=== PATIENT | male | born 1980 | race Caucasian/White ===

== ENCOUNTER 2017-03-17 19:33 | Emergency (ER) | payer OTHER ==
--- NOTE | 2017-03-17 20:56 | PDOC ---
History of Present Illness - General History Source: Patient Exam Limitations: No Limitations - History of Present Illness Initial Comments: 03/17/17 23:22 Patient is a 36 year old male with pmhx of anxiety, depression who presents to the ED with hallucinations. Patient was given shrooms by a friend at 5 PM today and is now experiencing constant hallucinations. He states that he fell down at 6:30pm and he called the ambulance because he couldnt get up. He denies hitting his head or LOC. Denies pain or trauma as he controlled his fall to the ground. He states that he feels as if everything is moving and he sees flashing lights.He denies any suicidal ideation. He denies any daily medications. He denies any stress or reason for taking the shrooms he states that he was just curious. Denies other symptoms of CP, SOB, fevers, headache, focal weakness/numbness, abd pain, rashes PMH: Anxiety, depression PSh: septoplasty SH: 20 pack year smoking, no alcohol, no drug Allergies to aspirin, ibuprofen, shelfish, pencillins G, shelfish, soy. <Alicia Bush - Last Filed: 03/18/17 00:30> <Lamont Garcia - Last Filed: 03/18/17 01:00> - General Chief Complaint: Alcohol intoxication Stated Complaint: INTOX Time Seen by Provider: 03/17/17 20:55 Past History <Alicia Bush - Last Filed: 03/18/17 00:30> - Past Medical History CVA: (VERTEBRAL ARTERY DISECTION) Psychiatric Problems: Yes (PANIC ATTACKS, DEPRESSION) - Immunization History Td Vaccination: No - Suicide/Smoking/Psychosocial Hx Smoking Status: Yes Smoking History: Current every day smoker Number of Cigarettes Smoked Daily: 20 'Breaking Loose' booklet given: 05/07/16 Hx Alcohol Use: No Drug/Substance Use Hx: No Substance Use Type: None <Lamotn Garcia - Last Filed: 03/18/17 01:00> - Past Medical History Allergies/Adverse Reactions: Allergies Allergy/AdvReac Type Severity Reaction Status Date / Time aspirin Allergy Difficulty Verified 05/07/16 10:31 Breathing ibuprofen Allergy Verified 05/07/16 10:31 penicillin G Allergy Difficulty Verified 05/07/16 10:31 Breathing Shellfish Allergy Difficulty Verified 05/07/16 10:31 Breathing soy [Soy] Allergy Difficulty Verified 05/07/16 10:31 Breathing Home Medications: Ambulatory Orders Alprazolam [Xanax] 1 mg PO ASDIR 10/25/11 Bupropion HCl [Wellbutrin Sr] 150 mg PO DAILY 10/25/11 Buprenorphine HCl [Subutex -] 4 mg SL DAILY 05/07/16 Clindamycin [Cleocin -] 300 mg PO Q6HPO #28 capsule 05/07/16 Duloxetine HCl [Cymbalta] 60 mg PO DAILY 05/07/16 Review of Systems - Review of Systems Able to Perform ROS?: Yes Comments:: 03/17/17 23:22 GENERAL/CONSTITUTIONAL: No fever or chills. No weakness. HEAD, EYES, EARS, NOSE AND THROAT: No change in vision. No ear pain or discharge. No sore throat. GASTROINTESTINAL: No nausea, vomiting, diarrhea or constipation. GENITOURINARY: No dysuria, frequency, or change in urination. CARDIOVASCULAR: No chest pain or shortness of breath. RESPIRATORY: No cough, wheezing, or hemoptysis. MUSCULOSKELETAL: No joint or muscle swelling or pain. No neck or back pain. SKIN: No rash NEUROLOGIC: +Hallucinations. No headache, vertigo, loss of consciousness, or change in strength/sensation. ENDOCRINE: No increased thirst. No abnormal weight change. HEMATOLOGIC/LYMPHATIC: No anemia, easy bleeding, or history of blood clots. ALLERGIC/IMMUNOLOGIC: No hives or skin allergy. <Alicia Bush - Last Filed: 03/18/17 00:30> *Physical Exam - Vital Signs Last Vital Signs Temp Pulse Resp BP Pulse Ox 98.2 F 67 18 141/74 100 03/17/17 21:39 03/17/17 21:39 03/17/17 21:39 03/17/17 21:39 03/17/17 21:39 - Physical Exam Comments: 03/17/17 23:23 GENERAL: Awake, alert, and fully oriented, in no acute distress HEAD: No signs of trauma EYES: PERRLA, EOMI, sclera anicteric, conjunctiva clear ENT: Auricles normal inspection, hearing grossly normal, nares patent, oropharynx clear without exudates. Moist mucosa NECK: Normal ROM, supple, no lymphadenopathy, JVD, or masses LUNGS: Breath sounds equal, clear to auscultation bilaterally. No wheezes, and no crackles HEART: Regular rate and rhythm, normal S1 and S2, no murmurs, rubs or gallops ABDOMEN: Soft, nontender, normoactive bowel sounds. No guarding, no rebound. No masses EXTREMITIES: Normal range of motion, no edema. No clubbing or cyanosis. No cords, erythema, or tenderness BACK: No midline spinal tenderness in cervical/thoracic/lumbar region NEUROLOGICAL: Normal speech, cranial nerves intact, negative pronator drift, 5/ 5 strength in all 4 extremities, normal sensation to light touch in all 4 extremities, normal cerebellar exam, normal gait, normal reflexes and tone SKIN: Warm, Dry, normal turgor, no rashes or lesions noted. <Alicia Bush - Last Filed: 03/18/17 00:30> Heart Score/ECG Review #1 03/18/17 00:27 Twelve-lead EKG was performed and reviewed by me. Normal sinus rhythm, rate 63. Normal axis and intervals. No ST elevations. No T-wave inversions. <Lamont Garcia - Last Filed: 03/18/17 01:00> ED Treatment Course - LABORATORY CBC & Chemistry Diagram: 03/17/17 21:31 03/17/17 21:31 - ADDITIONAL ORDERS Additional order review: Laboratory Results 03/17/17 21:31 Sodium 140 Potassium 3.7 Chloride 106 Carbon Dioxide 24 Anion Gap 10 BUN 11 Creatinine 1.0 Creat Clearance w eGFR > 60 Random Glucose 106 Calcium 9.0 Total Bilirubin 0.8 AST 40 H ALT 85 H Alkaline Phosphatase 72 Total Protein 7.2 Albumin 3.9 03/17/17 21:31 RBC 5.73 H MCV 86.3 MCHC 34.2 RDW 14.1 MPV 9.2 Neutrophils % 77.2 Lymphocytes % 16.0 Monocytes % 4.0 Eosinophils % 2.2 Basophils % 0.6 - Medications Given in the ED: ED Medications Discontinued Medications Generic Name Dose Route Start Last Admin Trade Name Freq PRN Reason Stop Dose Admin Lorazepam 1 mg 03/17/17 21:32 03/17/17 22:16 Ativan Injection - IVPUSH 03/17/17 21:33 1 mg ONCE ONE Administration <Alicia Bush - Last Filed: 03/18/17 00:30> - LABORATORY CBC & Chemistry Diagram: 03/17/17 21:31 03/17/17 21:31 <Lamont Garcia - Last Filed: 03/18/17 01:00> Medical Decision Making - Medical Decision Making 03/18/17 00:23 36yo M hx anxiety and depression p/w hallucinations after ingesting 8 shroom stems. Initially hypertensive to 150/100 with mild tachycardia to 100. Pt also fell but denies any pain as he controlled his fall to the ground. Denies head strike. Plan: -radiographer cardiac catheterization -EKG -labs -1mg ativan -observe 03/18/17 00:55 Pt feels much better s/p 1mg ativan. Denies current hallucinations, ambulated the patient in the ED. Has a steady gait, is asymptomatic. Repeat vitals 128/76 , HR 64, RR 14, Sat 100% RA, temp 98.7. Labs with slight AST/ALT elevation, likely 2/2 to psilocybin. Advised patient to follow up with PMD in 1-2 days for follow up, including for normalization of LFTs. I discussed the physical exam findings, ancillary test results and final diagnoses with the patient. I answered all of the patient's questions. The patient was satisfied with the care received and felt comfortable with the discharge plan and treatment plan. The patient will call their primary care physician within 24 hours to arrange follow-up and will return to the Emergency Department with any new, persistent or worsening symptoms. <Lamont Garcia - Last Filed: 03/18/17 01:00> *DC/Admit/Observation/Transfer - Attestations Scribe Attestion: 03/17/17 23:23 Documentation prepared by REBECCA Fuchs, acting as medical lab director for Lamont Garcia MD. <Alicia Bush - Last Filed: 03/18/17 00:30> - Discharge Dispostion Admit: No - Attestations Physician Attestion: 03/18/17 01:00 I, Dr. Lamont Garcia MD, attest that this document has been prepared under my direction and personally reviewed by me in its entirety. I further attest, that it accurately reflects all work, treatment, procedures and medical decision -making performed by me. <Lamotn Garcia - Last Filed: 03/18/17 01:00> Diagnosis at time of Disposition: Drug intoxication - Discharge Dispostion Disposition: HOME Condition at time of disposition: Stable - Referrals Referrals: STAFF,NOT ON [Primary Care Provider] -
[2017-03-17 21:45] VITALS: BMI 32.5
[2017-03-17 22:19] LABS: BASOPHIL 0.6 % (0-2.0); EOSINOPHIL 2.2 % (0-4.5); MCH 29.5 pg (25.7-33.7); MCHC 34.2 g/dl (32.0-35.9); MEAN CELL VOLUME 86.3 fl (80-96); MEAN PLT VOLUME 9.2 fl (7.5-11.1); NEUTROPHILS 77.2 % (42.8-82.8); PLATELET COUNT 160 K/MM3 (134-434); RDW 14.1 % (11.9-15.9); WHITE BLOOD COUNT 9.6 K/mm3 (4.0-10.0)
[2017-03-17 23:17] LABS: ALBUMIN 3.9 g/dl (3.4-5.0); ALK PHOS 72 U/L (45-117); ANION GAP 10 (8-16); BILIRUBIN,TOTAL 0.8 mg/dL (0.2-1.0); CO2 24 mmol/L (21-32); GLUCOSE,RANDOM 106 mg/dL (74-106); SGOT/AST 40 U/L (15-37); SGPT/ALT 85 U/L (12-78); TOT PROT 7.2 g/dl (6.4-8.2)
[2017-03-18 01:21] VITALS: BP 125/79; PULSE 76; TEMP 98.6
--- NOTE | 2017-03-18 11:53 | EKG ---
Test Reason : Blood Pressure : / mmHG Vent. Rate : 063 BPM Atrial Rate : 063 BPM P-R Int : 158 ms QRS Dur : 092 ms QT Int : 426 ms P-R-T Axes : 031 048 047 degrees QTc Int : 435 ms POOR DATA QUALITY, INTERPRETATION MAY BE ADVERSELY AFFECTED SINUS RHYTHM Confirmed by BALBIR MARIN, KAM ([id number]) on 03/18/2017 11:53:46 AM Referred By: Confirmed By:KAM MCGREGOR MD
== END 2017-03-18 01:22 | disposition home or self-care (01) ==
LOC: JER 19:33 → SUPCPDRO 19:33 → JER 03-18 01:22
PROC: 3E033GC Introduction of Other Therapeutic Substance into Peripheral Vein, Percutaneous Approach (ICD-10-PCS; principal; 2017-03-17)
DX: T62.0X1A Toxic effect of ingested mushrooms, accidental (unintentional), initial encounter (principal); Y92.9 Unspecified place or not applicable; F32.9 Major depressive disorder, single episode, unspecified; F17.210 Nicotine dependence, cigarettes, uncomplicated; Z88.0 Allergy status to penicillin; Z88.6 Allergy status to analgesic agent; Z91.013 Allergy to seafood
CPT/HCPCS: 36415; 80053; 85025; 93005; 93010; 99282-25

== ENCOUNTER 2018-02-10 05:52 | Emergency (ER) | payer OTHER ==
[2018-02-10 05:57] VITALS: TEMP 97.6; BMI 28.8
[2018-02-10] MEDS ORDERED: SODIUM CHLORIDE 1,000 ML IV ONE (06:13)
[2018-02-10] MEDS ORDERED: METOCLOPRAMIDE HCL INJECTION 10 MG/2 ML VIAL IVPUSH ONE (06:14)
--- NOTE | 2018-02-10 06:25 | PDOC ---
History of Present Illness - General Chief Complaint: Migraine Headache Stated Complaint: MIGRAINES Time Seen by Provider: 02/10/18 06:13 History Source: Patient Exam Limitations: No Limitations - History of Present Illness Initial Comments: 02/10/18 06:32 This is a 37-year-old male who comes in complaining of a migraine 2 days. Patient has a migraine history. Patient said he is usually able to manage very well with his Relpax however he ran out of it and does not have an appointment to see the physician will prescribe Intal tomorrow. Patient came in this morning complaining of unable to take it any longer and some nausea. Patient says otherwise this is typical migraine. It begins in the back of his head and spreads toward the front. Patient states that he is usually able to abort it early on with the medication. Patient otherwise denies any fevers or chills. Any other neurological complaints or symptoms. PAST MEDICAL HISTORY: no significant history PAST SURGICAL HISTORY: no significant history FAMILY HISTORY: no pertinant history SOCIAL HISTORY: Pt lives with family and is employed. MEDICATIONS: reviewed ALLERGIES: As per nursing notes ROS General: No fevers or chills, no weakness, no weight loss HEENT: No change in vision. No sore throat,. No ear pain CardioVascular: No chest pain or shortness of breath Respiratory:No cough, or wheezing. Gastrointestinal: no nausea, vomiting, diarrhea or constipation, No rectal bleeding Genitourinary: No dysuria, hematuria, or frequency Musculoskeletal: No joint pain or swelling Neurologic: + headache, no vertigo, dizziness or loss of consciousness Psychiatric: nor depression Skin: No rashes or easy bruising Endocrine: no increased thirst or abnormal weight change Allergic: no skin or latex allergy All other systems reviewed and normal Exam GENERAL: The patient is awake, alert, and fully oriented, in no acute distress. HEAD: Normal with no signs of trauma. EARS: Bilateral ears are normal with normal external canal. and tympanic membranes. EYES: Pupils equal, round and reactive to light, extraocular movements intact, sclera anicteric, conjunctiva clear. EXTREMITIES: Normal range of motion, no edema. NEUROLOGICAL: Normal speech, normal gait. grossly intact PSYCH: Normal mood, normal affect. SKIN: Warm, Dry, normal turgor, no rashes or lesions noted. Care of this patient transferred to Dr. Davison at 7 AM Case discussed in detail with oncoming Emergency Physician including history, physical exam and ancillary studies. Oncoming Emergency Physician has assumed care for the patient and will complete the evaluation and treatment. Patient is aware of the plan. Pt is clinically unchanged and stable. Past History - Past Medical History Allergies/Adverse Reactions: Allergies Allergy/AdvReac Type Severity Reaction Status Date / Time aspirin Allergy Difficulty Verified 05/07/16 10:31 Breathing ibuprofen Allergy Verified 05/07/16 10:31 penicillin G Allergy Difficulty Verified 05/07/16 10:31 Breathing Shellfish Allergy Difficulty Verified 05/07/16 10:31 Breathing soy [Soy] Allergy Difficulty Verified 05/07/16 10:31 Breathing Home Medications: Ambulatory Orders Alprazolam [Xanax] 1 mg PO ASDIR 10/25/11 Bupropion HCl [Wellbutrin Sr] 150 mg PO DAILY 10/25/11 Buprenorphine HCl [Subutex -] 4 mg SL DAILY 05/07/16 Duloxetine HCl [Cymbalta] 60 mg PO DAILY 05/07/16 Eletriptan Hydrobromide [Relpax -] 40 mg PO ONCE PRN #4 tablet 02/10/18 CVA: (VERTEBRAL ARTERY DISECTION) COPD: No Psychiatric Problems: Yes (PANIC ATTACKS, DEPRESSION) - Immunization History Td Vaccination: No - Suicide/Smoking/Psychosocial Hx Smoking Status: Yes Smoking History: Current every day smoker Have you smoked in the past 12 months: Yes Number of Cigarettes Smoked Daily: 30 Information on smoking cessation initiated: Yes 'Breaking Loose' booklet given: 02/10/18 Hx Alcohol Use: No Drug/Substance Use Hx: No Substance Use Type: None *Physical Exam - Vital Signs Last Vital Signs Temp Pulse Resp BP Pulse Ox 97.6 F 90 14 137/90 100 02/10/18 05:54 02/10/18 05:54 02/10/18 05:54 02/10/18 05:54 02/10/18 05:54 *DC/Admit/Observation/Transfer Diagnosis at time of Disposition: Headache - Discharge Dispostion Disposition: HOME Condition at time of disposition: Improved - Prescriptions Prescriptions: Eletriptan Hydrobromide [Relpax -] 40 mg PO ONCE PRN #4 tablet PRN Reason: Headache - Referrals Referrals: Jacobo Durham MD [Staff Physician] - - Patient Instructions Printed Discharge Instructions: DI for Migraine - Post Discharge Activity
[2018-02-10] MEDS ORDERED: ELETRIPTAN HYDROBROMIDE 40 MG TABLET PO ONE (06:29)
[2018-02-10] MEDS ORDERED: ACETAMINOPHEN 1000 MG/100 ML VIAL (NON FORMULARY) IVPB ONE (06:31)
[2018-02-10] MEDS ORDERED: ACETAMINOPHEN INJECTION 100 ML IVPB ONE (06:42)
[2018-02-10 08:14] VITALS: BP 109/67; PULSE 62
--- NOTE | 2018-02-10 08:14 | PDOC ---
*Physical Exam - Vital Signs Last Vital Signs Temp Pulse Resp BP Pulse Ox 97.6 F 90 14 137/90 100 02/10/18 05:54 02/10/18 05:54 02/10/18 05:54 02/10/18 05:54 02/10/18 05:54 - Physical Exam Comments: 02/10/18 08:11 Patient's headache has resolved. Neurologic status intact. To follow-up with primary physician. Fully ambulatory and in no pain or other distress at discharge. ED Treatment Course - Medications Given in the ED: ED Medications Discontinued Medications Generic Name Dose Route Start Last Admin Trade Name Christian PRN Reason Stop Dose Admin Acetaminophen 1,000 mg 02/10/18 06:31 02/10/18 06:35 Ofirmev Injection - IVPB 02/10/18 06:32 1,000 mg ONCE ONE Administration Eletriptan 40 mg 02/10/18 06:29 02/10/18 06:35 Relpax - PO 02/10/18 06:30 40 mg ONCE ONE Administration Sodium Chloride 1,000 mls @ 1,000 mls/hr 02/10/18 06:13 02/10/18 06:34 Normal Saline - IV 02/10/18 07:12 1,000 mls/hr .Q1H ONE Administration Metoclopramide HCl 10 mg 02/10/18 06:14 02/10/18 06:34 Reglan Injection - IVPUSH 02/10/18 06:15 10 mg ONCE ONE Administration *DC/Admit/Observation/Transfer Diagnosis at time of Disposition: Headache Qualifiers: Headache type: unspecified Headache chronicity pattern: acute headache Intractability: not intractable Qualified Code(s): R51 - Headache - Discharge Dispostion Disposition: HOME Condition at time of disposition: Improved Decision to Admit order: No - Referrals Referrals: Jacobo Durham MD [Staff Physician] - - Patient Instructions Printed Discharge Instructions: DI for Migraine - Post Discharge Activity
== END 2018-02-10 08:24 | disposition home or self-care (01) ==
LOC: FER 05:52
PROC: 3E033NZ Introduction of Analgesics, Hypnotics, Sedatives into Peripheral Vein, Percutaneous Approach (ICD-10-PCS; principal; 2018-02-10)
PROC: 3E033GC Introduction of Other Therapeutic Substance into Peripheral Vein, Percutaneous Approach (ICD-10-PCS; 2018-02-10)
PROC: 3E0337Z Introduction of Electrolytic and Water Balance Substance into Peripheral Vein, Percutaneous Approach (ICD-10-PCS; 2018-02-10)
DX: R51 Headache (principal); F32.9 Major depressive disorder, single episode, unspecified; F17.210 Nicotine dependence, cigarettes, uncomplicated
CPT/HCPCS: 99282-25; J0131; J7030